=== PATIENT | female | born 1990 | race Caucasian/White ===

== ENCOUNTER 2018-09-22 15:52 | Emergency (ER) | payer OTHER ==
[~2018-09-22] VITALS: Wt 57.7 kg
[2018-09-22] MEDS ORDERED: ONDANSETRON 4 MG INJ IV STA (17:47)
[2018-09-22] MEDS ORDERED: SOD CHLORIDE 0.9% 500 ML IV STA (17:47)
--- NOTE | 2018-09-22 17:49 | ERD ---
ER Documentation Chief Complaint Chief Complaint abd cramping w PO intake x2d, diarrhea x1.5days. HPI 28-year-old female, previously healthy, presents the emergency department, complaining of 2 days with abdominal pain, described as cramping, intermittent, followed by watery diarrhea, approximately 2 episodes per day. The diarrhea is nonbloody, nonmucous. The patient denies history of recent traveling, no sick contact no suspicious food. She denies fever, no chills, no urinary symptoms. ROS All systems reviewed and are negative except as per history of present illness. Medications Home Meds Active Scripts Ondansetron Hcl* (Zofran*) 4 Mg Tablet, 4 MG PO Q6H for NAUSEA AND/OR VOMITING, #12 TAB Prov:RUIZ LACEY MD 09/22/18 Acetaminophen* (Tylenol*) 325 Mg Tablet, 2 TAB PO Q6 PRN for PAIN AND OR ELEVATED TEMP, #20 TAB Prov:RUIZ LACEY MD 09/22/18 Ranitidine Hcl* (Zantac*) 150 Mg Tablet, 150 MG PO BID PRN for EPIGASTRIC PAIN, #20 TAB Prov:RUIZ LACEY MD 09/22/18 Allergies Allergies: Coded Allergies: No Known Allergy (Unverified , 09/22/18) PMhx/Soc , LMP 09/16/2018. Medical and Surgical Hx: pt denies Medical Hx, pt denies Surgical Hx Smoking Status: Never smoker FmHx Family History: No diabetes, No coronary disease Physical Exam Vitals Vital Signs Date Temp Pulse Resp B/P (MAP) Pulse Ox O2 O2 Flow FiO2 Time Delivery Rate 09/22/18 99.1 74 18 115/75 99 Room Air 19:35 (88) 09/22/18 99.2 92 20 118/80 100 16:02 (93) Physical Exam Patient alert, oriented, vital signs stable. HEAD: Normocephalic, atraumatic. EYES: PERRLA, EOMI, Sclera and conjunctiva appear normal. NOSE: Clear and patent nostrils. EARS: Canals clear, tympanic membranes WNL. MOUTH: Dry oral mucosa , normal lips and tongue, no oral lesions. THROAT: Normal oropharynx, no tonsillar exudates. NECK: Supple, No lymphadenopathy. Full ROM without pain or tenderness. HEART: RRR, no rubs, murmurs, clicks or gallops. LUNGS: Clear to auscultation. ABDOMEN: Soft, non-tender without masses or hepatosplenomegaly. EXTREMITIES: No edema bilaterally. BACK: Full ROM, no deformity, normal back exam NEURO: Cranial nerves grossly intact, no motor or sensory deficit SKIN: No rashes, no petechia. Patient Result Diagram: 09/22/18 1759 09/22/18 1800 Results 24 hrs Laboratory Tests Test 09/22/18 17:59 09/22/18 18:00 White Blood Count 6.8 10^3/ul Red Blood Count 4.99 10^6/ul Hemoglobin 14.0 g/dl Hematocrit 43.7 % Mean Corpuscular Volume 87.6 fl Mean Corpuscular Hemoglobin 28.1 pg Mean Corpuscular Hemoglobin Concent 32.0 g/dl Red Cell Distribution Width 13.0 % Platelet Count 289 10^3/UL Mean Platelet Volume 9.5 fl Immature Granulocytes % 0.300 % Neutrophils % 71.6 % Lymphocytes % 18.9 % Monocytes % 6.9 % Eosinophils % 2.0 % Basophils % 0.3 % Nucleated Red Blood Cells % 0.0 /100WBC Immature Granulocytes # 0.020 10^3/ul Neutrophils # 4.9 10^3/ul Lymphocytes # 1.3 10^3/ul Monocytes # 0.5 10^3/ul Eosinophils # 0.1 10^3/ul Basophils # 0.0 10^3/ul Nucleated Red Blood Cells # 0.0 10^3/ul Urine Color YELLOW Urine Clarity SLIGHTLY CLOUDY Urine pH 5.0 Urine Specific [place] 1.024 Urine Ketones TRACE mg/dL Urine Nitrite NEGATIVE mg/dL Urine Bilirubin NEGATIVE mg/dL Urine Urobilinogen NEGATIVE mg/dL Urine Leukocyte Esterase NEGATIVE Evelio/ul Urine Microscopic RBC 1 /HPF Urine Microscopic WBC 1 /HPF Urine Squamous Epithelial Cells FEW /HPF Urine Bacteria FEW /HPF Urine Mucus FEW /HPF Urine Hemoglobin NEGATIVE mg/dL Urine Glucose NEGATIVE mg/dL Urine Total Protein NEGATIVE mg/dl Urine Test NEGATIVE Sodium Level 140 mmol/L Potassium Level 4.0 mmol/L Chloride Level 101 mmol/L Carbon Dioxide Level 27 mmol/L Anion Gap 12 Blood Urea Nitrogen 13 mg/dl Creatinine 1.07 mg/dl Est Glomerular Filtrat Rate mL/min > 60 mL/min Glucose Level 86 mg/dl Calcium Level 10.3 mg/dl Total Bilirubin 0.1 mg/dl Direct Bilirubin 0.00 mg/dl Indirect Bilirubin 0.1 mg/dl Aspartate Amino Transf (AST/SGOT) 35 IU/L Alanine Aminotransferase (ALT/SGPT) 17 IU/L Alkaline Phosphatase 73 IU/L Total Protein 9.3 g/dl Albumin 4.7 g/dl Globulin 4.60 g/dl Albumin/Globulin Ratio 1.02 Lipase 293 U/L Current Medications Medications Dose Sig/Daxa Start Time Status Last (Trade) Ordered Route PRN Stop Time Admin Dose Reason Admin Sodium 500 ml @ Q1H STAT 09/22/18 DC 09/22/18 Chloride 500 mls/hr IV 17:47 09/22/18 18:01 18:46 Ondansetron 4 mg ONCE STAT 09/22/18 DC 09/22/18 HCl (Zofran IV 17:47 09/22/18 18:01 Inj) 17:50 Procedures/MDM Physical exam unremarkable, patient in no distress, hydrated, adequate oral intake, abdomen, soft, nontender, no peritoneal signs. Differential diagnosis include but not limited to: gastrointestinal infection bacterial/viral, UTI, appendicitis, colitis, food poisoning, food intolerance. Low suspicion for acute abdomen Physical examination and clinical presentation consistent most likely with viral gastroenteritis and dehydration. During the ED course the patient remained stable, overall improvement of the symptoms after receiving treatment in the emergency department with IV fluids. Clinical impression discussed with the patient who agrees with management. The patient is stable to be discharged home, Some side effects of prescribed medications (headache, rash, nausea, vomiting, diarrhea, interactions with other medications) were reviewed. The patient requires a follow up with the primary care provider in the next 48h. If symptoms persist, worsen or new symptoms develop, then patient should return to the ED immediately. Disclaimer: Inadvertent spelling and grammatical errors are likely due to EHR/di ctation software use and do not reflect on the overall quality of patient care. Also, please note that the electronic time recorded on this note does not necessarily reflect the actual time of the patient encounter. Departure Diagnosis: Primary Impression: Acute gastroenteritis Additional Impression: Dehydration Condition: Stable Additional Instructions: Thank you very much for allowing us to participate in your care. Your health and safety is our top priority at [facility]. The evaluation in the emergency department has been done to rule out an acute emergency, therefore, chronic conditions like malignancy or other diseases have not been evaluated; therefore, you need to follow up with a primary care provider in the next 48h. If symptoms persist, worsen or new symptoms develop, then patient should return to the ED immediately. Call your primary care doctor TOMORROW for an appointment during the next 2-4 days and bring all the information provided. Have prescriptions filled and follow precisely the directions on the label. If the symptoms get worse and your provider is unavailable, return to the Emergency Department immediately. RUIZ LACEY MD September 22, 2018 17:49
[2018-09-22] MEDS ORDERED: ACET325T33 PO (19:08)
[2018-09-22] MEDS ORDERED: RANI150T35 PO (19:08)
[2018-09-22] MEDS ORDERED: ONDA4TAB8 PO (19:08)
[2018-09-22 19:35] VITALS: BP 115/75; PULSE 74; RESP 18
== END 2018-09-22 19:36 | disposition home or self-care (01) ==
LOC: FTE 15:52
DX: K52.9 Noninfective gastroenteritis and colitis, unspecified (principal); E86.0 Dehydration
CPT/HCPCS: 80053; 81001; 83690; 84703; 85025; J2405; J7040; 36415; 81003; 96374